=== PATIENT | female | born 1960 | race Caucasian/White ===

== ENCOUNTER 2017-03-10 05:42 | Observation (INO) | payer OTHER ==
[~2017-03-10] VITALS: Ht 167.6 cm; Wt 91.6 kg
[2017-03-10] MEDS ORDERED: SODIUM CHLORIDE FLUSH 10ML SYR IVF ONE (06:00)
[2017-03-10] MEDS ORDERED: SODIUM CHLORIDE 0.9% 1,000 ML IV ONE (06:00)
[2017-03-10 06:52] LABS: BLOOD UREA NITROGEN 12 mg/dL (7-18)
[2017-03-10] MEDS ORDERED: HYDROcodone/APAP 5/325 TABLET PO PRN (09:00)
[2017-03-10] MEDS ORDERED: ACETAMINOPHEN 325 MG TABLET PO PRN (09:00)
[2017-03-10] MEDS ORDERED: ONDANSETRON 2MG/ML, 2ML IVPush PRN (09:00)
[2017-03-10] MEDS ORDERED: LOSA1TAB18 PO (09:48)
[2017-03-10] MEDS ORDERED: OXYC15TA60 PO (09:48)
[2017-03-10] MEDS ORDERED: HYDR-3144 PO (09:48)
[2017-03-10] MEDS ORDERED: MORP15TA3 PO (09:48)
[2017-03-10] MEDS ORDERED: OXYC-509 PO (09:48)
[2017-03-10] MEDS ORDERED: OMEP20TA62 PO (09:48)
[2017-03-10 11:37] VITALS: BP 105/68
[2017-03-10 14:55] VITALS: BP 134/78
[2017-03-10 19:46] VITALS: BP 124/74
[2017-03-11 02:53] VITALS: BP 102/66
[2017-03-11 08:09] VITALS: BP 130/73
== END 2017-03-11 12:30 | disposition home or self-care (01) ==
LOC: ED 06:06 → INTOOBSV 08:13 → EDIP 08:13 → 4WST 10:16
PROVIDERS: ADMIT Internal Medicine; ATTEND Internal Medicine
DX: K92.2 Gastrointestinal hemorrhage, unspecified (principal); K92.1 Melena; E87.6 Hypokalemia; I10 Essential (primary) hypertension; K63.5 Polyp of colon; R10.2 Pelvic and perineal pain; G89.29 Other chronic pain; Z80.0 Family history of malignant neoplasm of digestive organs; Z86.010 Personal history of colon polyps; Z98.890 Other specified postprocedural states
CPT/HCPCS: 36415; 80048; 82040; 85025; 85610; 85730; 86850; 86870; 86900; 86902; 86922; 96360; 96361; 99285; G0378; J7030; 86923